=== PATIENT | male | born 1955 | race Caucasian/White ===

== ENCOUNTER 2025-02-24 18:52 | Inpatient (IN) | payer MEDICARE, OTHER ==
[~2025-02-24] VITALS: Ht 193 cm; Wt 108.9 kg
[2025-02-24] MEDS ORDERED: SODIUM CHLORIDE 0.9% 100 ML ONE (20:06)
[2025-02-24] MEDS ORDERED: CEFTRIAXONE 1 GM VIAL ONE (20:06)
[2025-02-24] MEDS ORDERED: SODIUM CHLORIDE 0.9% 1000ML 1,000 ML ONE (20:07)
[2025-02-24 20:18] LABS: BASOPHILS % 0.2 % (0.0-1.0); EOSINOPHILS % 0.1 % (0.0-6.0); LYMPHOCYTES % 8.5 % (18.0-39.1); MONOCYTES % 6.3 % (4.4-11.3); NEUTROPHILS % 84.4 % (38.7-80.0); RED CELL DISTRIBUTION WIDTH 13.2 % (11.7-14.4)
[2025-02-24] MEDS: SODIUM CHLORIDE 0.9% 1000ML 1,000 ML IV ONE (20:25)
[2025-02-24] MEDS: ACETAMINOPHEN 325 MG TAB PO ONE (20:25)
[2025-02-24 20:34] LABS: EST GLOMERULAR FILTRATION RATE 92.0 ML/MIN (>=60)
[2025-02-24 20:42] LABS: CORONAVIRUS COVID-19 AG NEGATIVE (NEGATIVE)
[2025-02-24 20:51] LABS: LEUKOCYTE ESTERASE ,URINE TRACE (NEGATIVE); URINE UROBILINOGEN 1 mg/dL (0.2 - 1)
[2025-02-24 20:52] LABS: EPITHELIAL CELLS,URINE RARE /LPF; PROTEIN,URINE DIPSTICK 1+ (NEGATIVE)
[2025-02-24 22:21] VITALS: TEMP 98.4
[2025-02-24 23:41] VITALS: PULSE 80; RESP 19
[2025-02-24] MEDS ORDERED: SODIUM CHLORIDE FLUSH 10 ML SYR INJ PRN (23:45)
[2025-02-24] MEDS ORDERED: DEXTROSE 50% SYRINGE 50 ML IV PRN (23:45)
[2025-02-25] VITALS (10 sets, daily range): BP systolic 107–136; BP diastolic 64–87; PULSE 61–88; RESP 12–22; TEMP 97.3–100.4; O2SAT 93–99
[2025-02-25 05:21] LABS: BASOPHILS % 0.3 % (0.0-1.0); EOSINOPHILS % 0.1 % (0.0-6.0); LYMPHOCYTES % 11.9 % (18.0-39.1); MONOCYTES % 7.1 % (4.4-11.3); NEUTROPHILS % 79.6 % (38.7-80.0); RED CELL DISTRIBUTION WIDTH 13.1 % (11.7-14.4)
[2025-02-25 05:54] LABS: EST GLOMERULAR FILTRATION RATE 91.0 ML/MIN (>=60)
[2025-02-25] MEDS: ACETAMINOPHEN 325 MG TAB PO PRN (06:07)
[2025-02-25] MEDS: INSULIN REGULAR, HUMAN 100 UNIT/1 ML SQ SCH (07:30)
[2025-02-25] MEDS: SODIUM CHLORIDE 0.9% 250ML 250 ML ONE (10:14)
[2025-02-25] MEDS ORDERED: PRAMIPEXOLE0.125 MG PO (12:24)
[2025-02-25] MEDS ORDERED: METOPROLOL SUCC50 MG PO (12:24)
[2025-02-25] MEDS ORDERED: METFORMIN HCL500 M1 PO (12:24)
[2025-02-25] MEDS ORDERED: GLIPIZIDE ER10 MG PO (12:24)
[2025-02-25] MEDS ORDERED: LOSARTAN POTAS100 MG PO (12:24)
[2025-02-25] MEDS ORDERED: ATORVASTATIN CA20 MG PO (12:24)
[2025-02-25] MEDS ORDERED: TRAZODONE HCL150 MG PO (12:24)
[2025-02-25] MEDS: ONDANSETRON HCL INJ 2MG/ML 2ML 2 MG/ML VIAL IV PRN (13:15)
[2025-02-25] MEDS: LACTATED RINGER'S 1,000 ML INJ ONE (13:15)
[2025-02-25] MEDS: PRAMIPEXOLE DIHYDROCHLORIDE 0.25 MG TAB PO SCH (21:31)
[2025-02-25] MEDS: METFORMIN HCL 500 MG TAB CR PO SCH (21:31)
[2025-02-25] MEDS: TRAZODONE HCL 50 MG TAB PO SCH (21:31)
[2025-02-26] VITALS (8 sets, daily range): BP systolic 126–142; BP diastolic 70–82; PULSE 66–79; RESP 16–21; TEMP 97.6–98.2; O2SAT 95–98
[2025-02-26] MEDS: PANTOPRAZOLE SODIUM 20 MG TABLET.DR PO SCH (05:52)
[2025-02-26 07:31] LABS: BASOPHILS % 0.4 % (0.0-1.0); EOSINOPHILS % 1.3 % (0.0-6.0); LYMPHOCYTES % 15.2 % (18.0-39.1); MONOCYTES % 8.6 % (4.4-11.3); NEUTROPHILS % 73.6 % (38.7-80.0); RED CELL DISTRIBUTION WIDTH 13.2 % (11.7-14.4)
[2025-02-26 07:54] LABS: EST GLOMERULAR FILTRATION RATE 91.0 ML/MIN (>=60)
[2025-02-26] MEDS: ATORVASTATIN 20 MG TAB PO SCH (09:20)
[2025-02-26] MEDS: METOPROLOL SUCCINATE 50 MG TAB XL PO SCH (09:21)
[2025-02-26] MEDS ORDERED: CEFUROXIME500 MG PO (13:50)
== END 2025-02-26 19:57 | disposition home or self-care (01) | DRG 690 ==
LOC: ER 20:03 → ERHOLD 23:39 → MED/SURG 02-25 00:58 → OBSVTOIN 02-25 18:02
PROVIDERS: ADMIT Internal Medicine; ATTEND Internal Medicine
DX: N39.0 Urinary tract infection, site not specified (principal); E11.65 Type 2 diabetes mellitus with hyperglycemia; R11.0 Nausea; I10 Essential (primary) hypertension; E78.49 Other hyperlipidemia; F51.04 Psychophysiologic insomnia; M19.90 Unspecified osteoarthritis, unspecified site; Z11.52 Encounter for screening for COVID-19; Z79.84 Long term (current) use of oral hypoglycemic drugs
CPT/HCPCS: 36415; 71045; 74176; 80048; 80053; 81001; 82948; 83605; 85025; 87040; 87086; 94799; 99284; G0378; J0696; J2405; J7030; J7050